=== PATIENT | female | born 1975 | race Caucasian/White ===

== ENCOUNTER 2022-11-12 10:19 | Outpatient (CLI) | payer OTHER | END 2022-11-12 10:20 | disposition home or self-care (01) | LOC: BICMAMMO 10:19 | PROVIDERS: ATTEND Internal Medicine | DX: Z12.31 Encounter for screening mammogram for malignant neoplasm of breast (principal) | CPT/HCPCS: 77063; 77067 ==

== ENCOUNTER 2023-12-31 11:46 | Outpatient (CLI) | payer OTHER | END 2023-12-31 11:47 | disposition home or self-care (01) | LOC: BICMAMMO 11:46 | PROVIDERS: ATTEND Internal Medicine | DX: Z12.31 Encounter for screening mammogram for malignant neoplasm of breast (principal); Z80.3 Family history of malignant neoplasm of breast | CPT/HCPCS: 77063; 77067 ==

== ENCOUNTER 2024-08-23 12:19 | Observation (INO) | payer OTHER ==
[2024-08-23 14:18] LABS: #Basophils 0.03 10x3/uL (0.0-0.2); #Eosinophils Less than 0.03 10x3/uL (0.0-0.7); %Basophils 0.4 % (0.0-1.0); %Eosinophils 0.1 % (0.0-10.0); %Lymphocytes 20.1 % (21.0-51.0); %Monocytes 4.9 % (0.0-10.0); %Neutrophils 74.2 % (42.0-75.0); Hematocrit 36.9 % (36.0-47.0); Mean Corpuscular HGB CONC 35.2 g/dL (32.0-36.0); Mean Corpuscular Hemoglobin 31.2 pg (27.0-31.0); Mean Corpuscular Volume 88.5 fL (78.0-98.0); Mean Platelet Volume 9.8 fL (7.4-10.4); Platelet Count 325 10x3/uL (130-400); RBC Distribution Width 13.9 % (11.5-14.5); Red Blood Cell (RBC) Count 4.17 mill/uL (4.20-5.40)
[2024-08-23 14:39] LABS: BHCG - Serum Negative (NEGATIVE); Pregs Control Background? CLEAR/WHITE (CLR/WHITE); Pregs Control Bar Appear? YES (CONTROL BAR)
[2024-08-23 14:47] LABS: ALT (SGPT) 13 U/L (Less than 34); AST (SGOT) 25 U/L (11-34); Albumin 4.2 g/dL (3.1-4.5); Alkaline Phosphatase 66 U/L (40-110); Anion Gap 14 mmol/L (10-20); BUN (Urea Nitrogen) 11 mg/dL (7.0-18.7); Calc. Creatinine Clearance 0 mL/min (70-130); Calcium 8.9 mg/dL (7.8-10.44); Carbon Dioxide 28 mmol/L (22-29); Chloride 98 mmol/L (98-107); Estimated GFR 85; Globulin 3.2 g/dL (2.4-3.5); Glucose 78 mg/dL (70-105); Magnesium 1.4 mg/dL (1.6-2.6); Potassium 2.3 mmol/L (3.5-5.1); Protein, Total 7.4 g/dL (6.0-8.3); Sodium 138 mmol/L (136-145)
[2024-08-23 14:49] LABS: Troponin I Less than 0.010 ng/mL (< 0.028)
[2024-08-23 15:18] LABS: Bacteria/HPF 2+ HPF (None Seen); Bilirubin Negative (Negative); Blood, Urine Negative (Negative); CAUTI Indications for Culture Pelvic or flank pain; Clarity Clear (Clear); Glucose, Urine (Dipstick) Normal (Negative); Ketone, Urine 10 mg/dL (Negative); Leukocyte Negative Leu/uL (Negative); Nitrite Negative (Negative); Protein, Urine (Dipstick) 20 mg/dL (Neg-Trace); RBC/HPF None Seen HPF (0-3); Specific Gravity, Urine 1.011 (1.002-1.036); Squamous Epithelial 0-3 HPF (0-3); Urobilinogen Normal mg/dL (Less than 2); WBC/HPF 0-3 HPF (0-3)
[2024-08-23 15:21] LABS: Urine Culture Reflex No No
[2024-08-23 16:51] VITALS: BMI 38.1
[2024-08-23] MEDS ORDERED: Acetaminophen 325 MG TAB PO PRN (17:08)
[2024-08-23] MEDS ORDERED: Calcium Carbonate 500 MG ChewTAB PO PRN (17:08)
[2024-08-23] MEDS ORDERED: Senokot S 8.6-50 MG TAB PO PRN (17:08)
[2024-08-23] MEDS ORDERED: Acetaminophen 650 MG Suppository PR PRN (17:08)
[2024-08-23] MEDS: NS 0.9% w/ 40 MEQ KCL 1,000 ML IV SCH (17:55)
[2024-08-23 17:56] LABS: Calcium 9.1 mg/dL (7.8-10.44)
[2024-08-23 18:00] LABS: Phosphorus 1.7 mg/dL (2.5-4.5)
[2024-08-23] MEDS: PHOS-NAK 1 PKT PACK PO SCH (22:16)
[2024-08-23 23:52] LABS: Chloride 104 mmol/L (98-107); Potassium 3.2 mmol/L (3.5-5.1); Sodium 140 mmol/L (136-145)
[2024-08-23 23:53] LABS: Calcium 8.8 mg/dL (7.8-10.44); Glucose 125 mg/dL (70-105)
[2024-08-23 23:55] LABS: Anion Gap 16 mmol/L (10-20); Carbon Dioxide 23 mmol/L (22-29)
[2024-08-23 23:57] LABS: BUN (Urea Nitrogen) 9 mg/dL (7.0-18.7); Calc. Creatinine Clearance 138 mL/min (70-130); Estimated GFR 87
[2024-08-23 23:59] LABS: Magnesium 1.9 mg/dL (1.6-2.6)
[2024-08-24] MEDS: traMADol HCl 50 MG TAB PO PRN (03:35)
[2024-08-24 04:28] LABS: Anion Gap 13 mmol/L (10-20); BUN (Urea Nitrogen) 9 mg/dL (7.0-18.7); Calc. Creatinine Clearance 154 mL/min (70-130); Calcium 8.3 mg/dL (7.8-10.44); Carbon Dioxide 26 mmol/L (22-29); Chloride 103 mmol/L (98-107); Estimated GFR 100; Glucose 104 mg/dL (70-105); Magnesium 1.8 mg/dL (1.6-2.6); Sodium 139 mmol/L (136-145)
[2024-08-24] MEDS: Multivitamin W/ Minerals 1 TAB PO SCH (09:01)
[2024-08-24] MEDS: Magnesium Oxide 400 MG TAB PO SCH (09:02)
[2024-08-24] MEDS ORDERED: Non-Formulary Item 1 EACH (Cyclobenzaprine Hcl [Cyclobenzaprine Hcl] 5 MG Tablet) PO PRN (10:03)
[2024-08-24] MEDS ORDERED: Meloxicam 15 MG TAB PO PRN (10:03)
[2024-08-24] MEDS: Potassium Chloride 20 MEQ TAB PO SCH (11:22)
[2024-08-24] MEDS: Magnesium 2 GM/50 ML(in water) 2 GM in Premix 1 BAG IVPB SCH (11:22)
[2024-08-24 11:34] VITALS: BP 136/66; TEMP 97.8
[2024-08-24] MEDS ORDERED: Pregabalin 50 MG CAP PO SCH (21:00)
[2024-08-25] MEDS ORDERED: Amlodipine 10 MG TAB PO SCH (09:00)
[2024-08-25] MEDS ORDERED: Sertraline 100 MG TAB PO SCH (09:00)
== END 2024-08-24 14:13 | disposition home or self-care (01) ==
LOC: ERS 12:19 → ERHOLD 16:01 → 2NO 19:59
PROVIDERS: ADMIT Student in an Organized Health Care Education/Training Program; ATTEND Hospitalist
DX: E87.6 Hypokalemia (principal); E83.42 Hypomagnesemia; I10 Essential (primary) hypertension; F39 Unspecified mood [affective] disorder; F32.A Depression, unspecified; F41.9 Anxiety disorder, unspecified; F17.290 Nicotine dependence, other tobacco product, uncomplicated; Z88.0 Allergy status to penicillin; Z79.51 Long term (current) use of inhaled steroids; Z79.1 Long term (current) use of non-steroidal anti-inflammatories (NSAID); Z79.899 Other long term (current) drug therapy
CPT/HCPCS: 36415; 80048; 80053; 81001; 83735; 84100; 84484; 84703; 85025; 93005; 96365; 96366; 96375; 96376; G0378; J3475; J3480